=== PATIENT | male | born 1955 | race Caucasian/White ===

== ENCOUNTER 2023-03-17 10:10 | Emergency (ER) | payer MEDICARE ==
[~2023-03-17] VITALS: Ht 172.7 cm; Wt 70.3 kg
[~2023-03-17 10:10] MED LIST: ANAPROX DS550 MG PO; HYDROCODONE BIT1 T11 PO; KENALOG0.1% TP; LOMOTIL 0.025 M1 TAB PO; MOTRIN800 MG PO; ROBAXIN750 MG PO; XANAX0.25 MG PO; ZOFRAN ODT4 MG SL
[2023-03-17] MEDS ORDERED: CLEOCIN HCL150 MG PO (10:54)
== END 2023-03-17 11:00 | disposition home or self-care (01) ==
LOC: ED 10:10
DX: K08.89 Other specified disorders of teeth and supporting structures (principal); F41.9 Anxiety disorder, unspecified